=== PATIENT | male | born 1955 | race Hispanic/Latino ===

== ENCOUNTER 2020-11-25 17:21 | Inpatient (IN) | payer MEDICARE, OTHER ==
[~2020-11-25] VITALS: Ht 175.3 cm; Wt 84.1 kg
[2020-11-25 18:17] LABS: BASOPHILS % (AUTO) 0.2 % (0.0-5.0); EOSINOPHILS % (AUTO) 1.3 % (0.0-8.0); HEMATOCRIT 37.4 % (42-54); LYMPHOCYTES % (AUTO) 21.9 % (21.0-51.0); MEAN CORPUSCULAR HEMOGLOBIN 29.2 pg (27.0-33.0); MEAN CORPUSCULAR HGB CONC 33.7 g/dL (32.0-36.0); MEAN CORPUSCULAR VOLUME 86.6 fL (79-99); MONOCYTES % (AUTO) 5.9 % (3.0-13.0); NEUTROPHILS % (AUTO) 70.3 % (40.0-77.0); PLATELET COUNT (AUTO) 269 K/uL (130-400); RED BLOOD CELL COUNT(AUTO) 4.32 MIL/uL (4.50-6.20); RED CELL DISTRIBUTION WIDTH 12.2 % (11.0-15.5); WHITE BLOOD COUNT (AUTO) 8.3 K/uL (4.8-10.8)
[2020-11-25 18:19] VITALS: BP 137/69
[2020-11-25 18:29] LABS: CREATININE 0.8 mg/dL (0.5-1.5); POTASSIUM 4.1 mmol/L (3.5-5.1)
[2020-11-25 18:30] LABS: INR 0.97 (0.85-1.15); PROTHROMBIN TIME 10.6 SEC (9.6-11.6)
[2020-11-25 18:34] LABS: ALBUMIN 3.2 g/dL (3.5-5.0); BILIRUBIN,TOTAL 0.4 mg/dL (0.2-1.0); MAGNESIUM 1.9 mg/dL (1.80-2.40); TOTAL PROTEIN, SERUM 6.8 g/dL (6.0-8.3)
[2020-11-25 18:36] LABS: B-TYPE NATRIURETIC PEPTIDE 25 pg/mL (0-100)
[2020-11-25 18:46] VITALS: BP 124/76
[2020-11-25 19:31] VITALS: BP 137/75
[2020-11-25] MEDS ORDERED: ACETAMINOPHEN 325 MG TAB PO PRN (23:00)
[2020-11-25] MEDS ORDERED: ONDANSETRON 4MG INJ IVP PRN (23:00)
[2020-11-25 23:50] VITALS: BP 126/77
[2020-11-26] MEDS ORDERED: GABA-533 PO (00:59)
[2020-11-26] MEDS ORDERED: BACL10TA PO (00:59)
[2020-11-26] MEDS ORDERED: HYDR-4068 PO (00:59)
[2020-11-26] MEDS ORDERED: TAMS-1 PO (00:59)
[2020-11-26] MEDS ORDERED: AMLO-258 PO (00:59)
[2020-11-26] MEDS ORDERED: OMEP40CA21 PO (00:59)
[2020-11-26] MEDS ORDERED: GLYB5TAB8 PO (00:59)
[2020-11-26] MEDS ORDERED: LINA5TAB PO (00:59)
[2020-11-26] MEDS ORDERED: ROSU40TA21 PO (00:59)
[2020-11-26] MEDS ORDERED: ALPR2TAB7 PO (00:59)
[2020-11-26] MEDS ORDERED: ROPI2TAB7 PO ×2 (00:59→02:50)
[2020-11-26 01:45] VITALS: BP_SYST 128; BP_SYST 138; BP_SYST 140; BP_DIAS 75; BP_DIAS 80; BP_DIAS 82
[2020-11-26 02:01] LABS: CREATINE KINASE, TOTAL 59 U/L (21-232); MYOGLOBIN 28 ng/mL (10-92); TROPONIN I < 0.04 ng/mL (0.00-0.06)
[2020-11-26 04:28] VITALS: BP 121/73
[2020-11-26] MEDS: INSULIN HUMULIN R 100 UNIT/ML 3ML SQ SCH ×4 (06:25→20:21)
[2020-11-26 07:40] VITALS: BP 140/85
[2020-11-26 07:44] LABS: BASOPHILS % (AUTO) 0.2 % (0.0-5.0); EOSINOPHILS % (AUTO) 2.5 % (0.0-8.0); HEMATOCRIT 36.4 % (42-54); MEAN CORPUSCULAR HGB CONC 34.1 g/dL (32.0-36.0); PLATELET COUNT (AUTO) 275 K/uL (130-400); RED BLOOD CELL COUNT(AUTO) 4.28 MIL/uL (4.50-6.20); RED CELL DISTRIBUTION WIDTH 12.4 % (11.0-15.5); WHITE BLOOD COUNT (AUTO) 9.2 K/uL (4.8-10.8)
[2020-11-26 08:21] LABS: CARBON DIOXIDE 30 mmol/L (21-32); CHLORIDE 105 mmol/L (101-111); CHOLESTEROL 119 mg/dL (<200); CREATINE KINASE, TOTAL 52 U/L (21-232); CREATININE 0.8 mg/dL (0.5-1.5); GLOMERULAR FILTR. RATE CALC 104 mL/min (>60); GLUCOSE,RANDOM 190 mg/dL (70-105); HDL CHOLESTEROL 44 mg/dL (29-71); LDL DIRECT 55 mg/dL (0-99); MYOGLOBIN 24 ng/mL (10-92); PHOSPHORUS 2.5 mg/dL (2.5-4.9); POTASSIUM 4.1 mmol/L (3.5-5.1); SODIUM SERUM 138 mmol/L (136-145); THYROID STIMULATING HORMONE 1.26 uIU/mL (0.36-3.74); TRIGLYCERIDES 170 mg/dL (30-200); TROPONIN I < 0.04 ng/mL (0.00-0.06); UREA NITROGEN, BLOOD 14 mg/dL (7-18)
[2020-11-26] MEDS: PANTOPRAZOLE 40 MG/VIAL IVP SCH (08:21)
[2020-11-26 11:51] VITALS: BP_SYST 134; BP_SYST 135; BP_SYST 138; BP_DIAS 76; BP_DIAS 78; BP_DIAS 82
[2020-11-26 14:15] LABS: CREATINE KINASE, TOTAL 48 U/L (21-232); MYOGLOBIN 32 ng/mL (10-92); TROPONIN I < 0.04 ng/mL (0.00-0.06)
[2020-11-26] MEDS ORDERED: GADOTERATE MEGLUMINE 10 MMOL/20 ML VIAL IV ONE (15:25)
[2020-11-26 16:00] VITALS: BP 133/87
[2020-11-26] MEDS: GLYBURIDE 5 MG TABLET PO SCH (20:13)
[2020-11-26] MEDS: ALPRAZOLAM 1 MG TAB PO SCH (20:14)
[2020-11-26 20:20] VITALS: BP_SYST 126; BP_SYST 132; BP_SYST 138; BP_DIAS 77; BP_DIAS 79; BP_DIAS 88
[2020-11-26] MEDS ORDERED: NON-FORMULARY MEDICATION 1 EACH (Alprazolam 2 MG) PO SCH (21:00)
[2020-11-26] MEDS ORDERED: ROPINIROLE HCL 1 MG TABLET PO SCH (21:00)
[2020-11-26] MEDS ORDERED: NON-FORMULARY MEDICATION 1 EACH (Ropinirole HCl 2 MG) PO SCH (21:00)
[2020-11-27 00:24] VITALS: BP 120/70
[2020-11-27 03:32] LABS: MEAN CORPUSCULAR HEMOGLOBIN 28.4 pg (27.0-33.0); MEAN CORPUSCULAR HGB CONC 33.7 g/dL (32.0-36.0); MEAN CORPUSCULAR VOLUME 84.4 fL (79-99); PLATELET COUNT (AUTO) 291 K/uL (130-400); RED CELL DISTRIBUTION WIDTH 12.3 % (11.0-15.5); WHITE BLOOD COUNT (AUTO) 9.2 K/uL (4.8-10.8)
[2020-11-27 03:38] LABS: HEMOGLOBIN A1C 9.4 % (4.0-6.0)
[2020-11-27 03:47] LABS: CREATININE 0.8 mg/dL (0.5-1.5); POTASSIUM 3.7 mmol/L (3.5-5.1)
[2020-11-27 04:28] VITALS: BP 134/76
[2020-11-27 04:40] LABS: EOSINOPHILS % (MANUAL) 2 % (1-6); LYMPHOCYTES % (MANUAL) 27 % (22-44); MONOCYTES % (MANUAL) 4 % (2-9); SEGMENTED NEUTROPHILS % 67 % (40-70)
[2020-11-27 04:41] LABS: MAN.DIFF COMMENT-IMPRESSION MANUAL DIFFERENTIAL; PLATELET MORPHOLOGY COMMENT ADEQUATE
[2020-11-27] MEDS: INSULIN HUMULIN R 100 UNIT/ML 3ML SQ SCH ×3 (05:55→17:04)
[2020-11-27 07:55] VITALS: BP 131/83
[2020-11-27] MEDS: GLYBURIDE 5 MG TABLET PO SCH (08:53)
[2020-11-27] MEDS: PANTOPRAZOLE 40 MG/VIAL IVP SCH (08:53)
[2020-11-27] MEDS: ALPRAZOLAM 1 MG TAB PO SCH (08:56)
[2020-11-27] MEDS ORDERED: NON-FORMULARY MEDICATION 1 EACH (Amlodipine Besylate 10 MG) PO SCH (09:00)
[2020-11-27] MEDS ORDERED: TAMSULOSIN HCL 0.4 MG CAP.ER.24H PO SCH (09:00)
[2020-11-27] MEDS ORDERED: NON-FORMULARY MEDICATION 1 EACH (Rosuvastatin Calcium 40 MG) PO SCH (09:00)
[2020-11-27] MEDS ORDERED: LINAGLIPTIN 5 MG TABLET PO SCH (09:00)
[2020-11-27] MEDS ORDERED: ROSUVASTATIN 40MG PO SCH (09:00)
[2020-11-27] MEDS ORDERED: AMLODIPINE 5 MG TAB PO SCH (09:00)
[2020-11-27 11:49] VITALS: BP_SYST 139; BP_SYST 141; BP_DIAS 83; BP_DIAS 85
[2020-11-27 11:50] VITALS: BP 123/87
[2020-11-27 16:54] VITALS: BP 135/85
== END 2020-11-27 17:50 | disposition home or self-care (01) | DRG 312 ==
LOC: EDH 17:21 → EDHIP 22:28 → 4DH 11-26 00:55
PROVIDERS: ADMIT Internal Medicine Nephrology; ATTEND Internal Medicine Nephrology
DX: R55 Syncope and collapse (principal); E11.9 Type 2 diabetes mellitus without complications; I10 Essential (primary) hypertension; G89.29 Other chronic pain; E78.5 Hyperlipidemia, unspecified; D64.9 Anemia, unspecified; E78.00 Pure hypercholesterolemia, unspecified; Z86.73 Personal history of transient ischemic attack (TIA), and cerebral infarction without residual deficits
CPT/HCPCS: 36415; 70450; 70553; 71045; 80048; 80053; 80061; 82550; 82948; 83036; 83735; 83874; 83880; 84100; 84153; 84443; 84484; 85025; 85378; 85610; 93005; 93306; 93356; 93880; C9113; G0378; J1815

== ENCOUNTER 2021-02-03 17:22 | Emergency (ER) | payer MEDICARE ==
[~2021-02-03] VITALS: Ht 175.3 cm; Wt 86.2 kg
[~2021-02-03 17:22] MED LIST: ALPR2TAB7 PO; AMLO-258 PO; GLYB5TAB8 PO; HYDR-4068 PO; LINA5TAB PO; ROPI2TAB7 PO; ROSU40TA21 PO; TAMS-1 PO
[2021-02-03 19:15] VITALS: BP 140/86
[2021-02-03] MEDS ORDERED: MORPHINE 4 MG SYG ONE (19:43)
[2021-02-03] MEDS ORDERED: MORPHINE 4 MG SYG IM ONE (20:00)
[2021-02-03] MEDS ORDERED: ORPHENADRINE CITRATE 30 MG/ML ML ONE (22:24)
[2021-02-03] MEDS ORDERED: LIDOCAINE 5% TOPICAL PATCH TP ONE ×2 (22:24→22:30)
[2021-02-03] MEDS ORDERED: KETOROLAC 30MG VIAL (30MG/ML) ONE (22:25)
[2021-02-03] MEDS ORDERED: ORPHENADRINE CITRATE 30 MG/ML ML IM ONE (22:30)
[2021-02-03] MEDS ORDERED: KETOROLAC 30MG VIAL (30MG/ML) IM ONE (22:30)
[2021-02-03 23:47] VITALS: BP 149/92
== END 2021-02-03 23:47 | disposition home or self-care (01) ==
LOC: EDH 17:22
DX: S16.1XXA Strain of muscle, fascia and tendon at neck level, initial encounter (principal); S20.229A Contusion of unspecified back wall of thorax, initial encounter; S00.83XA Contusion of other part of head, initial encounter; E11.9 Type 2 diabetes mellitus without complications; F41.9 Anxiety disorder, unspecified; I10 Essential (primary) hypertension; Z79.84 Long term (current) use of oral hypoglycemic drugs; Z79.899 Other long term (current) drug therapy; W18.39XA Other fall on same level, initial encounter; Y93.89 Activity, other specified; Y92.89 Other specified places as the place of occurrence of the external cause; Y99.8 Other external cause status
CPT/HCPCS: 70450; 72125; 72128; 93005; 96372 ×3; 99285; J1885; J2270; J2360

== ENCOUNTER 2021-03-29 10:35 | Observation (INO) | payer MEDICARE ==
[~2021-03-29] VITALS: Ht 175.3 cm; Wt 83.6 kg
[2021-03-29 11:01] LABS: BASOPHILS % (AUTO) 0.3 % (0.0-5.0); HEMATOCRIT 41.9 % (42-54); LYMPHOCYTES % (AUTO) 1.3 % (21.0-51.0); MEAN CORPUSCULAR HEMOGLOBIN 28.7 pg (27.0-33.0); MEAN CORPUSCULAR HGB CONC 33.9 g/dL (32.0-36.0); MEAN CORPUSCULAR VOLUME 84.6 fL (79-99); MONOCYTES % (AUTO) 2.4 % (3.0-13.0); NEUTROPHILS % (AUTO) 94.9 % (40.0-77.0); PLATELET COUNT (AUTO) 308 K/uL (130-400); RED BLOOD CELL COUNT(AUTO) 4.95 MIL/uL (4.50-6.20); RED CELL DISTRIBUTION WIDTH 12.6 % (11.0-15.5); WHITE BLOOD COUNT (AUTO) 26.2 K/uL (4.8-10.8)
[2021-03-29 11:11] LABS: ALBUMIN 3.5 g/dL (3.5-5.0); BILIRUBIN,TOTAL 0.6 mg/dL (0.2-1.0); CREATININE 1.4 mg/dL (0.5-1.5); POTASSIUM 5.1 mmol/L (3.5-5.1); TOTAL PROTEIN, SERUM 7.5 g/dL (6.0-8.3)
[2021-03-29] MEDS ORDERED: IOHEXOL-350 75 ML VIAL IV ONE (12:25)
[2021-03-29] MEDS ORDERED: ACETAMINOPHEN 325 MG TAB PO ONE (13:00)
[2021-03-29] MEDS ORDERED: 0.9%NACL 1000ML 1,000 ML IV ONE (13:00)
[2021-03-29 13:29] LABS: APPEARANCE,URINE Clear (CLEAR); BILIRUBIN,URINE Negative (NEGATIVE); COLOR,URINE Yellow (YELLOW); GLUCOSE, URINE (UA) >=1000 mg/dL (NEGATIVE); KETONES,URINE Negative (NEGATIVE); LEUKOCYTE ESTERASE ,URINE Negative (NEGATIVE); NITRATE,URINE Negative (NEGATIVE); OCCULT BLOOD,URINE Negative (NEGATIVE); PROTEIN,URINE POS 1+ mg/dL (NEGATIVE); UROBILINOGEN,URINE 0.2 mg/dL (0.2-1.0)
[2021-03-29 14:02] LABS: BACTERIA,URINE Rare /HPF (None Seen); RBC,URINE 0-1 /HPF (0-1); SQUAMOUS EPITHELIAL CELL,UR Rare /HPF (0-2); WBC,URINE 0-1 /HPF (0-1)
[2021-03-29] MEDS ORDERED: 0.9%NACL 50ML 50 ML IV ONE (14:44)
[2021-03-29] MEDS: ZOSYN 3.375GM +NS 50ML IV SCH ×2 (15:04→21:48)
[2021-03-29] MEDS ORDERED: LACTULOSE 20 GM/30 ML UDCUP PO PRN (18:00)
[2021-03-29] MEDS ORDERED: TEMAZEPAM 15 MG CAPSULE PO PRN (18:00)
[2021-03-29] MEDS ORDERED: ACETAMINOPHEN 325 MG TAB PO PRN (18:00)
[2021-03-29] MEDS ORDERED: ONDANSETRON 4MG INJ IVP PRN (18:00)
[2021-03-29] MEDS ORDERED: ACETAMINOPHEN 650 MG SUPPOSITORY RC PRN (18:00)
[2021-03-29] MEDS ORDERED: CLONIDINE HCL 0.1 MG TABLET PO PRN (18:00)
[2021-03-29] MEDS ORDERED: MORPHINE 2 MG SYG IVP PRN (18:00)
[2021-03-29] MEDS ORDERED: DOCUSATE SODIUM 100 MG CAP PO PRN (18:30)
[2021-03-29] MEDS ORDERED: HYDROCODONE/ACETAMINOPHEN 10/325 MG TAB PO PRN (18:30)
[2021-03-29] MEDS ORDERED: ONDA4TAB10 PO (18:37)
[2021-03-29] MEDS ORDERED: GABA-533 PO (18:37)
[2021-03-29] MEDS ORDERED: ESCI20TA PO (18:37)
[2021-03-29] MEDS ORDERED: CHOL4PAC21 PO (18:37)
[2021-03-29] MEDS ORDERED: ALBU8.5H8 IH (18:37)
[2021-03-29] MEDS ORDERED: MAGN400T29 PO (18:37)
[2021-03-29] MEDS ORDERED: TIZA2CAP9 PO (18:37)
[2021-03-29] MEDS ORDERED: hyoscyamine PO (18:37)
[2021-03-29] MEDS: LEVOFLOXACIN 500 MG/D5W 100 ML 100 ML IV SCH (18:46)
[2021-03-29] MEDS: LACTATED RINGERS 1000ML 1,000 ML IV SCH (18:46)
[2021-03-29] MEDS: ROPINIROLE HCL 1 MG TABLET PO SCH (21:10)
[2021-03-29] MEDS: INSULIN HUMULIN R 100 UNIT/ML 3ML SQ SCH (21:10)
[2021-03-29] MEDS: METRONIDAZOLE 500 MG TABLET PO SCH (21:48)
[2021-03-29] MEDS ORDERED: METRONIDAZOLE 500MG/100ML BAG 100 ML IVPB SCH (22:00)
[2021-03-30 01:40] VITALS: BP 115/48
[2021-03-30 04:31] VITALS: BP 116/63
[2021-03-30 05:08] LABS: BASOPHILS % (AUTO) 0.1 % (0.0-5.0); EOSINOPHILS % (AUTO) 0.1 % (0.0-8.0); HEMATOCRIT 36.8 % (42-54); LYMPHOCYTES % (AUTO) 9.5 % (21.0-51.0); MEAN CORPUSCULAR HEMOGLOBIN 28.6 pg (27.0-33.0); MEAN CORPUSCULAR HGB CONC 33.2 g/dL (32.0-36.0); MEAN CORPUSCULAR VOLUME 86.4 fL (79-99); MONOCYTES % (AUTO) 4.2 % (3.0-13.0); NEUTROPHILS % (AUTO) 85.5 % (40.0-77.0); PLATELET COUNT (AUTO) 283 K/uL (130-400); RED BLOOD CELL COUNT(AUTO) 4.26 MIL/uL (4.50-6.20); RED CELL DISTRIBUTION WIDTH 13.1 % (11.0-15.5); WHITE BLOOD COUNT (AUTO) 16.6 K/uL (4.8-10.8)
[2021-03-30 05:31] LABS: CREATININE 0.8 mg/dL (0.5-1.5); POTASSIUM 3.7 mmol/L (3.5-5.1)
[2021-03-30] MEDS: METRONIDAZOLE 500 MG TABLET PO SCH ×3 (06:09→21:33)
[2021-03-30] MEDS: ZOSYN 3.375GM +NS 50ML IV SCH ×3 (06:09→21:32)
[2021-03-30 06:24] LABS: HEMOGLOBIN A1C 10.2 % (4.0-6.0)
[2021-03-30] MEDS: INSULIN HUMULIN R 100 UNIT/ML 3ML SQ SCH ×4 (06:40→21:00)
[2021-03-30 08:00] VITALS: BP 123/71
[2021-03-30] MEDS: LACTATED RINGERS 1000ML 1,000 ML IV SCH ×3 (08:47→21:42)
[2021-03-30] MEDS: TAMSULOSIN HCL 0.4 MG CAP.ER.24H PO SCH (08:48)
[2021-03-30] MEDS: ENOXAPARIN SODIUM 40 MG/0.4 ML SYRINGE SQ SCH (08:48)
[2021-03-30] MEDS: PANTOPRAZOLE 40 MG TAB DR PO SCH (08:48)
[2021-03-30] MEDS: Rosuvastatin Calcium 40 MG PO SCH (08:49)
[2021-03-30] MEDS ORDERED: LEVOFLOXACIN 500 MG/D5W 100 ML IV SCH (09:00)
[2021-03-30 12:00] VITALS: BP 105/64
[2021-03-30 16:00] VITALS: BP 118/74
[2021-03-30] MEDS: LEVOFLOXACIN 500 MG/D5W 100 ML 100 ML IV SCH (17:17)
[2021-03-30] MEDS ORDERED: METR-172 PO (19:21)
[2021-03-30] MEDS ORDERED: LEVO500T90 PO (19:21)
[2021-03-30 20:00] VITALS: BP 137/69
[2021-03-30] MEDS: ROPINIROLE HCL 1 MG TABLET PO SCH (21:33)
[2021-03-31] VITALS: BP 123/63
[2021-03-31 04:00] VITALS: BP 134/73
[2021-03-31 05:16] LABS: HEMATOCRIT 32.6 % (42-54); MEAN CORPUSCULAR VOLUME 85.1 fL (79-99); RED BLOOD CELL COUNT(AUTO) 3.83 MIL/uL (4.50-6.20); RED CELL DISTRIBUTION WIDTH 13.2 % (11.0-15.5); WHITE BLOOD COUNT (AUTO) 8.4 K/uL (4.8-10.8)
[2021-03-31 05:25] LABS: CREATININE 0.7 mg/dL (0.5-1.5); POTASSIUM 3.5 mmol/L (3.5-5.1)
[2021-03-31] MEDS: METRONIDAZOLE 500 MG TABLET PO SCH (06:10)
[2021-03-31] MEDS: ZOSYN 3.375GM +NS 50ML IV SCH (06:10)
[2021-03-31] MEDS: INSULIN HUMULIN R 100 UNIT/ML 3ML SQ SCH ×2 (06:11→13:05)
[2021-03-31 08:00] VITALS: BP 119/60
[2021-03-31] MEDS: TAMSULOSIN HCL 0.4 MG CAP.ER.24H PO SCH (10:49)
[2021-03-31] MEDS: PANTOPRAZOLE 40 MG TAB DR PO SCH (10:49)
[2021-03-31] MEDS: ENOXAPARIN SODIUM 40 MG/0.4 ML SYRINGE SQ SCH (10:50)
[2021-03-31] MEDS: Rosuvastatin Calcium 40 MG PO SCH (10:51)
[2021-03-31] MEDS: LACTATED RINGERS 1000ML 1,000 ML IV SCH (11:01)
[2021-03-31 12:00] VITALS: BP 128/63
== END 2021-03-31 11:30 | disposition home or self-care (01) ==
LOC: EDH 10:35 → UNDOADMOB 14:33 → OBSVTOIN 14:33 → INTOOBSV 14:33 → EDHIP 14:33 → 3DH 03-30 00:27
PROVIDERS: ADMIT Internal Medicine Critical Care Medicine; ATTEND Internal Medicine Critical Care Medicine
DX: A41.9 Sepsis, unspecified organism (principal); K52.9 Noninfective gastroenteritis and colitis, unspecified; E86.0 Dehydration; E78.5 Hyperlipidemia, unspecified; E11.65 Type 2 diabetes mellitus with hyperglycemia; I10 Essential (primary) hypertension; F41.9 Anxiety disorder, unspecified; G89.29 Other chronic pain; M54.9 Dorsalgia, unspecified; E78.00 Pure hypercholesterolemia, unspecified; Z87.891 Personal history of nicotine dependence; Z86.73 Personal history of transient ischemic attack (TIA), and cerebral infarction without residual deficits; Z79.84 Long term (current) use of oral hypoglycemic drugs; Z79.899 Other long term (current) drug therapy
CPT/HCPCS: 36415 ×3; 74177; 80048 ×2; 80053; 81001; 82150; 82550 ×3; 82948 ×9; 83036; 83605 ×3; 83690 ×2; 83874 ×3; 84484 ×4; 85025 ×2; 85027; 87040 ×2; 93005; 96361 ×2; 96365; 96366 ×5; 96367; 96368; 96372 ×3; 96375; 99291; G0378 ×40; J1650 ×2; J1815 ×4; J1956 ×2; J2405; J2543 ×6; J7120 ×4; Q9967